=== PATIENT | female | born 1995 ===

== ENCOUNTER 2017-01-05 13:40 | Observation (INO) ==
[2017-01-05 14:15] LABS: Basophils # 0.1 10*3/uL (0.0-0.2); Basophils % 0.5 % (0.0-0.8); Eosinophils % 0.2 % (0.00-10.9); Hematocrit 35.2 VOL% (35.7-47.0); Hemoglobin 11.7 GM/DL (12.0-16.0); Immature Granulocytes % 0.3 %; Immature Granulocytes Absolute 0.04 #; Lymphocytes # 1.6 10*3/uL (1.4-4.0); Lymphocytes % 13.1 % (21.3-54.2); Mean Corpuscular HGB Conc 33.2 GM/DL (32-36); Mean Corpuscular Hemoglobin 28 PG (27-34); Mean Corpuscular Volume 84.6 FL (87-102); Mean Platelet Volume 11.5 FL (9.6-12.0); Monocytes # 0.5 10*3/uL (0.11-0.8); Monocytes % 4.1 % (1.7-12.7); Neutrophils # 10.1 10*3/uL (1.4-7.4); Neutrophils % 81.8 % (38.7-73.9); Platelet Count 219 T/CUMM (130-400); Red Blood Count 4.16 MC/CUMM (3.8-5.5); Red Cell Distribution Width 12.7 % (9.3-17.3); White Blood Count 12.3 T/CUMM (4-12)
[2017-01-05] MEDS ORDERED: OXYTOCIN/LR 20 UNIT/1,000 ML BAG IV ONE (15:42)
[2017-01-05] MEDS ORDERED: ONDANSETRON 4 MG/2 ML VIAL IV STA (15:46)
[2017-01-05] MEDS ORDERED: HYDROmorphone 2 MG/1 ML VIAL IV STA (15:46)
[2017-01-05] MEDS ORDERED: ONDANSETRON 4 MG/2 ML VIAL IV PRN (15:49)
[2017-01-05] MEDS ORDERED: ACETAMINOPHEN 325 MG TABLET PO PRN (15:49)
[2017-01-05] MEDS ORDERED: MAGNESIUM HYDROXIDE SUSP 30 ML UDCUP PO PRN (15:49)
[2017-01-05] MEDS ORDERED: BISACODYL 10 MG SUPP RECTAL PRN (15:49)
[2017-01-05] MEDS ORDERED: IBUPROFEN 800 MG TABLET PO PRN (15:49)
[2017-01-05] MEDS ORDERED: HYDROmorphone 2 MG/1 ML VIAL IV PRN (15:54)
[2017-01-05] MEDS ORDERED: LACTATED RINGERS 1,000 ML IV SCH (16:00)
[2017-01-05] MEDS ORDERED: OXYTOCIN 10 UNIT/ML VIAL ONE (16:00)
[2017-01-05] MEDS ORDERED: DOCUSATE SODIUM 100 MG CAPSULE PO SCH (21:00)
[2017-01-06 09:00] VITALS: BP 109/71
== END 2017-01-06 11:55 | disposition home or self-care (01) ==
LOC: EDBD → EDUNIT# → N.EDINP 13:40 → N.ED 13:40 → N.EDINP 16:45 → N.OB 17:00
PROVIDERS: ADMIT Obstetrics & Gynecology; ATTEND Obstetrics & Gynecology